=== PATIENT | female | born 1975 | race Caucasian/White ===

== ENCOUNTER 2021-03-29 13:10 | Emergency (ER) | payer OTHER ==
[~2021-03-29] VITALS: Ht 167.6 cm; Wt 72.6 kg
== END 2021-03-29 16:18 | disposition home or self-care (01) ==
LOC: ER 13:10
DX: T63.441A Toxic effect of venom of bees, accidental (unintentional), initial encounter (principal); R07.0 Pain in throat; Z88.1 Allergy status to other antibiotic agents
CPT/HCPCS: 96374; 96375; 99283-25; A9270; J1885; J2930

== ENCOUNTER 2021-05-25 22:00 | Emergency (ER) | payer OTHER ==
[~2021-05-25] VITALS: Ht 167.6 cm; Wt 77.1 kg
[2021-05-25] MEDS ORDERED: Triamcinolone A15 G4 TOP (23:23)
== END 2021-05-25 23:30 | disposition home or self-care (01) ==
LOC: ER 22:00
DX: S91.312A Laceration without foreign body, left foot, initial encounter (principal); S91.012A Laceration without foreign body, left ankle, initial encounter; L23.7 Allergic contact dermatitis due to plants, except food; E11.9 Type 2 diabetes mellitus without complications; Z88.8 Allergy status to other drugs, medicaments and biological substances; Z23 Encounter for immunization; W01.0XXA Fall on same level from slipping, tripping and stumbling without subsequent striking against object, initial encounter
CPT/HCPCS: 12002; 90471; 90714; 99282-25

== ENCOUNTER 2025-04-19 14:42 | Emergency (ER) | payer OTHER ==
[~2025-04-19] VITALS: Ht 167.6 cm; Wt 81.7 kg
[~2025-04-19 14:42] MED LIST: Triamcinolone A15 G4 TOP
[2025-04-19 15:46] LABS: BASOPHILS ABSOLUTE AUTO 0.02 K/mm3 (0.00-0.23); BASOPHILS PERCENT AUTO 0 % (0-2); EOSINOPHILS ABSOLUTE AUTO 0.21 K/mm3 (0.00-0.68); EOSINOPHILS PERCENT AUTO 3 % (0-6); Hematocrit 38.6 % (33.0-51.0); Hemoglobin 12.9 g/dL (11.5-16.0); IMMATURE GRAN ABSOLUTE AUTO 0.03 K/mm3 (0.00-0.10); IMMATURE GRAN PERCENT AUTO 1 % (0-1); LYMPHOCYTES ABSOLUTE AUTO 1.37 K/mm3 (0.84-5.20); LYMPHOCYTES PERCENT AUTO 21 % (21-46); MONOCYTES ABSOLUTE AUTO 0.28 K/mm3 (0.16-1.47); MONOCYTES PERCENT AUTO 4 % (4-13); Mean Corpuscular HGB Conc 33.4 g/dL (31.5-36.5); Mean Corpuscular Volume 88 fL (80-100); NEUTROPHILS ABSOLUTE AUTO 4.49 K/mm3 (1.96-9.15); NEUTROPHILS PERCENT AUTO 70 % (41-73); NRBC ABSOLUTE 0.00 K/mm3 (0.00-0.02); NRBC Auto 0.0 /100 WBC (0.0-0.2); Platelet Count 225 K/mm3 (150-400); RDW Coefficient Variation 13.9 % (11.7-14.2); RDW Standard Deviation 44.4 fL (35.1-46.3)
[2025-04-19 16:11] LABS: Alanine Aminotransfer (ALT/SGP 34.0 U/L (12-78); Albumin, Blood 3.5 g/dL (3.4-5.0); Albumin/Globulin Ratio 1.0 (0.8-1.8); Anion Gap 8.0 mmol/L (3-11); Aspartate Aminotrans (AST/SGOT 27.0 U/L (12-37); Bilirubin, Total 0.3 mg/dL (0.1-1.0); Blood Urea Nitrogen 19.0 mg/dL (8-24); CO2, Blood 23.0 mmol/L (21-32); Calcium, Blood 8.6 mg/dL (8.5-10.1); Chloride, Blood 108.0 mmol/L (98-108); Creatinine, Blood 0.97 mg/dL (0.40-1.00); Globulin, Blood 3.5 g/dL (2.2-4.0); Glucose, Blood 332.0 mg/dL (70-99); Magnesium, Blood 1.5 mg/dL (1.6-2.4); Potassium, Blood 4.1 mmol/L (3.5-5.5); Sodium, Blood 135.0 mmol/L (136-145); Total Protein, Blood 7.0 g/dL (6.4-8.2)
[2025-04-19 16:34] VITALS: BP 117/76
[2025-04-19] MEDS ORDERED: CELE100 PO (17:05)
[2025-04-19] MEDS ORDERED: CLARITHROMYCIN PO (17:07)
[2025-04-19] MEDS ORDERED: BUSPIRONE HCL7.5 M6 PO (17:08)
[2025-04-19] MEDS ORDERED: HYDROXYZINE PAM25 MG PO (17:10)
[2025-04-19] MEDS ORDERED: PREGABALIN75 MG PO (17:11)
[2025-04-19] MEDS ORDERED: BUPROPION XL450 M1 PO (17:12)
== END 2025-04-19 17:21 | disposition home or self-care (01) ==
LOC: ER 14:42
PROVIDERS: Student in an Organized Health Care Education/Training Program
DX: F41.9 Anxiety disorder, unspecified (principal); E10.9 Type 1 diabetes mellitus without complications; Z88.1 Allergy status to other antibiotic agents
CPT/HCPCS: 80053; 83735; 84703; 85025; 93005; 93010; 99284-25; A9270